=== PATIENT | male | born 1950 | race Caucasian/White ===

== ENCOUNTER → 2022-01-13 08:36 | Outpatient (CLI) | payer MEDICARE, SELFPAY ==
[2022-01-13 10:47] LABS: Hemoglobin A1C% w Est Avg Glu 6.3 % (4.0-6.0)
[2022-01-13 11:03] LABS: Alanine Aminotransferase 21 IU/L (<50); Albumin 3.9 g/dL (3.5-5.0); Albumin Globulin Ratio 1.3 (1.0-2.8); Alkaline Phosphatase 118 U/L (38-126); Aspartate Aminotransferase 23 IU/L (17-59); BUN Creatinine Ratio 13.4 (6-22); Bilirubin Total 0.5 mg/dL (0.2-1.3); Blood Urea Nitrogen 29 mg/dL (9-20); Calcium 9.6 mg/dL (8.4-10.2); Carbon Dioxide 24 mmol/L (22-32); Chloride 104 mmol/L (98-107); Cholesterol 110 mg/dL (140-199); Estimated Glomerular Filt Rate 32 mL/min (>60); Globulin 3.1 g/dL (1.7-4.1); Glucose 154 mg/dL (80-110); HDL Cholesterol 40 mg/dL (40-60); HEMOLYSIS < 15 (0-50); LDL Cholesterol Calculated 49 mg/dL (<100); Potassium 4.8 mmol/L (3.4-5.1); Sodium 140 mmol/L (137-145); Triglycerides 106 mg/dL (35-150)
[2022-01-13 11:29] LABS: TSH w/ Reflex to FT4 1.36 uIU/mL (0.47-4.68)
[2022-01-13 12:02] LABS: Folate 19.7 ng/mL (2.76-20.0); Vitamin B12 598 pg/mL (239-931)
[2022-01-14 05:13] LABS: PSA Free % 13.7 % (.); PSA, Total 2.7 ng/mL (0.0-4.0)
== END ==
PROVIDERS: PCP Family Medicine; Referring Provider Family Medicine; Visit Provider Family Medicine
DX: E11.22 Type 2 diabetes mellitus with diabetic chronic kidney disease (principal); E03.9 Hypothyroidism, unspecified; I10 Essential (primary) hypertension; Z12.5 Encounter for screening for malignant neoplasm of prostate; E56.9 Vitamin deficiency, unspecified; E78.2 Mixed hyperlipidemia
CPT/HCPCS: 36415; 80053; 80061; 82607; 82746; 83036; 84153; 84154; 84443; G0103

== ENCOUNTER → 2022-01-14 13:16 | Outpatient (CLI) | payer MEDICARE, SELFPAY ==
[2022-01-14 14:50] LABS: Creatinine Urine Random 96.8 mg/dL
[2022-01-14 15:50] LABS: Microalbumi Creatinin Ratio Ur 545.4 ug/mg CR (<30); Microalbumin Urine Random 52.8 mg/dL (0-1.6)
== END ==
PROVIDERS: PCP Family Medicine; Referring Provider Family Medicine; Visit Provider Family Medicine
DX: E11.22 Type 2 diabetes mellitus with diabetic chronic kidney disease (principal); I10 Essential (primary) hypertension
CPT/HCPCS: 82043; 82570

== ENCOUNTER → 2022-04-09 07:56 | Outpatient (CLI) | payer MEDICARE, SELFPAY ==
[2022-04-09 09:18] LABS: Hemoglobin A1C% w Est Avg Glu 6.5 % (4.0-6.0)
[2022-04-09 09:30] LABS: Alanine Aminotransferase 20 IU/L (<50); Albumin 3.9 g/dL (3.5-5.0); Alkaline Phosphatase 122 U/L (38-126); Aspartate Aminotransferase 18 IU/L (17-59); BUN Creatinine Ratio 14.8 (6-22); Bilirubin Total 0.4 mg/dL (0.2-1.3); Blood Urea Nitrogen 36 mg/dL (9-20); Calcium 9.4 mg/dL (8.4-10.2); Carbon Dioxide 20 mmol/L (22-32); Chloride 105 mmol/L (98-107); Cholesterol 120 mg/dL (140-199); Estimated Glomerular Filt Rate 28 mL/min (>60); Globulin 3.8 g/dL (1.7-4.1); Glucose 173 mg/dL (80-110); HDL Cholesterol 31 mg/dL (40-60); HEMOLYSIS < 15 (0-50); LDL Cholesterol Calculated 67 mg/dL (<100); Potassium 4.6 mmol/L (3.4-5.1); Sodium 140 mmol/L (137-145); Total Protein 7.7 g/dL (6.3-8.2); Triglycerides 108 mg/dL (35-150)
[2022-04-09 09:58] LABS: TSH w/ Reflex to FT4 2.24 uIU/mL (0.47-4.68)
[2022-04-11 12:09] LABS: Creatinine Urine Random 108.9 mg/dL
[2022-04-11 12:12] LABS: Microalbumi Creatinin Ratio Ur 112.9 ug/mg CR (<30); Microalbumin Urine Random 12.3 mg/dL (0-1.6)
== END ==
PROVIDERS: PCP Family Medicine; Referring Provider Family Medicine; Visit Provider Family Medicine
DX: E11.22 Type 2 diabetes mellitus with diabetic chronic kidney disease (principal); I12.9 Hypertensive chronic kidney disease with stage 1 through stage 4 chronic kidney disease, or unspecified chronic kidney disease; N18.32 Chronic kidney disease, stage 3b; E78.2 Mixed hyperlipidemia; E03.9 Hypothyroidism, unspecified
CPT/HCPCS: 36415; 80053; 80061; 82043; 82570; 83036; 84443

== ENCOUNTER → 2022-04-28 13:58 | Outpatient (CLI) | payer MEDICARE, SELFPAY ==
[2022-04-28 14:50] LABS: Hematocrit 37.8 % (41-53); Hemoglobin 12.3 g/dL (13.5-17.5)
[2022-04-28 15:26] LABS: BUN Creatinine Ratio 15.6 (6-22); Blood Urea Nitrogen 36 mg/dL (9-20); Calcium 9.6 mg/dL (8.4-10.2); Carbon Dioxide 25 mmol/L (22-32); Chloride 102 mmol/L (98-107); Estimated Glomerular Filt Rate 29 mL/min (>60); Glucose 181 mg/dL (80-110); HEMOLYSIS < 15 (0-50); Potassium 4.5 mmol/L (3.4-5.1); Sodium 139 mmol/L (137-145)
[2022-04-28 18:21] LABS: Creatinine Urine Random 206.3 mg/dL; Protein (Total) Urine Random 141 mg/dL (0-12); Protein Creatinine Ratio Urine 0.68 GRAM/24H
== END ==
PROVIDERS: PCP Family Medicine; Referring Provider Student in an Organized Health Care Education/Training Program; Visit Provider Student in an Organized Health Care Education/Training Program
DX: D64.9 Anemia, unspecified (principal); N05.9 Unspecified nephritic syndrome with unspecified morphologic changes; R80.9 Proteinuria, unspecified
CPT/HCPCS: 36415; 80048; 82570; 84156; 85014; 85018

== ENCOUNTER → 2022-05-30 12:59 | Outpatient (CLI) | payer MEDICARE, SELFPAY ==
--- NOTE | 2022-05-30 | DI.US.S_ITS ---
PROCEDURE: US RENAL COMPLETE INDICATIONS: Chronic kidney disease, stage 3b TECHNIQUE: Real-time scanning was performed of the kidneys and bladder, with image documentation. COMPARISON: None. FINDINGS: Kidneys: Kidneys are normal in size. Right kidney measures 10.7 cm long; left kidney measures 9.6 cm long. Right renal cortical thickness is 1.5 cm; left renal cortical thickness is 1.7 cm. Renal cortical echotexture is normal. No suspicious solid mass lesions. Possible 8 mm calculus versus prominent renal sinus fat at the interpolar region of the right kidney without significant posterior shadowing. Additional 10 mm echogenic focus is seen at the interpolar region of the left kidney without significant posterior shadowing. No hydronephrosis. Bladder: Pre-void bladder volume is 10.5 mL. Bladder is underdistended on prevoid images, which compromises evaluation. Voiding was not attempted. Miscellaneous: No free pelvic fluid. IMPRESSION: 1. Kidneys are normal in size without hydronephrosis. 2. Questionable bilateral nonobstructing renal calculi versus prominent foci of fat within the renal sinuses. Approved by: Saul Sanford M.D. on 05/30/2022 at 14:31
== END ==
PROVIDERS: PCP Family Medicine; Referring Provider Student in an Organized Health Care Education/Training Program; Visit Provider Student in an Organized Health Care Education/Training Program
DX: N18.32 Chronic kidney disease, stage 3b (principal)
CPT/HCPCS: 76770

== ENCOUNTER → 2022-06-06 09:09 | Outpatient (CLI) | payer MEDICARE, SELFPAY ==
[2022-06-06 10:08] LABS: Appearance Urine UA CLOUDY; Bilirubin Urine UA 1+ (NEGATIVE); Color Urine UA YELLOW; Glucose Urine UA NEGATIVE (Negative); Ketones Urine UA NEGATIVE (NEGATIVE); Leukocyte Esterase Urine UA 2+ (NEGATIVE); Nitrite Urine UA NEGATIVE (Negative); Occult Blood Urine UA TRACE-INTACT (Negative); Protein Urine UA 2+ (Negative); Specific Gravity Urine UA 1.025 (1.000-1.035); Urobilinogen Urine UA 0.2 E.U./dL (0.2)
[2022-06-06 10:14] LABS: Culture Indicated Urine Specimen Cultured
[2022-06-06 10:16] LABS: Squamous Epithelial Cell Urine 1-5 /HPF (0-5/HPF); WBC Urine 30-100/HPF (0-5/HPF)
[2022-06-06 10:18] LABS: Bacteria Urine Few (2-10); RBC Urine None Seen (0-5/HPF)
[2022-06-06 10:22] LABS: Ictotest Urine Negative (Negative)
[2022-06-06 10:32] LABS: Hematocrit 38.2 % (41-53); Hemoglobin 12.5 g/dL (13.5-17.5)
[2022-06-06 10:53] LABS: Creatinine Urine Random 263.8 mg/dL
[2022-06-06 10:59] LABS: Protein (Total) Urine Random 305 mg/dL (0-12); Protein Creatinine Ratio Urine 1.15 GRAM/24H
[2022-06-06 11:08] LABS: BUN Creatinine Ratio 11.4 (6-22); Blood Urea Nitrogen 26 mg/dL (9-20); Calcium 9.4 mg/dL (8.4-10.2); Carbon Dioxide 22 mmol/L (22-32); Chloride 101 mmol/L (98-107); Estimated Glomerular Filt Rate 30 mL/min (>60); Glucose 254 mg/dL (80-110); HEMOLYSIS < 15 (0-50); Phosphorous 3.2 mg/dL (2.3-3.7); Potassium 4.6 mmol/L (3.4-5.1); Sodium 137 mmol/L (137-145)
[2022-06-08 09:47] LABS: Parathyroid Hormone Int 45 pg/mL (15-65)
== END ==
PROVIDERS: PCP Family Medicine; Referring Provider Student in an Organized Health Care Education/Training Program; Visit Provider Student in an Organized Health Care Education/Training Program
DX: N05.9 Unspecified nephritic syndrome with unspecified morphologic changes (principal); D64.9 Anemia, unspecified; E83.30 Disorder of phosphorus metabolism, unspecified; N25.81 Secondary hyperparathyroidism of renal origin; N30.00 Acute cystitis without hematuria; R80.9 Proteinuria, unspecified
CPT/HCPCS: 36415; 80048; 81001; 82570; 83970; 84100; 84156; 85014; 85018; 87077; 87086; 87186

== ENCOUNTER → 2022-06-18 08:07 | Outpatient (CLI) | payer MEDICARE, SELFPAY ==
[2022-06-18 09:12] LABS: Hemoglobin A1C% w Est Avg Glu 6.3 % (4.0-6.0)
[2022-06-18 09:39] LABS: Alanine Aminotransferase 16 IU/L (<50); Albumin 3.6 g/dL (3.5-5.0); Albumin Globulin Ratio 1.1 (1.0-2.8); Alkaline Phosphatase 123 U/L (38-126); Aspartate Aminotransferase 16 IU/L (17-59); BUN Creatinine Ratio 13.4 (6-22); Bilirubin Total 0.6 mg/dL (0.2-1.3); Blood Urea Nitrogen 31 mg/dL (9-20); Calcium 9.6 mg/dL (8.4-10.2); Carbon Dioxide 20 mmol/L (22-32); Chloride 107 mmol/L (98-107); Cholesterol 112 mg/dL (140-199); Estimated Glomerular Filt Rate 29 mL/min (>60); Globulin 3.2 g/dL (1.7-4.1); Glucose 170 mg/dL (80-110); HDL Cholesterol 42 mg/dL (40-60); HEMOLYSIS < 15 (0-50); LDL Cholesterol Calculated 50 mg/dL (<100); Potassium 4.5 mmol/L (3.4-5.1); Sodium 139 mmol/L (137-145); Total Protein 6.8 g/dL (6.3-8.2); Triglycerides 100 mg/dL (35-150)
[2022-06-18 11:09] LABS: Creatinine Urine Random 249.2 mg/dL
[2022-06-18 12:02] LABS: Microalbumi Creatinin Ratio Ur 200.6 ug/mg CR (<30)
[2022-06-18 15:04] LABS: TSH w/ Reflex to FT4 3.88 uIU/mL (0.47-4.68)
== END ==
PROVIDERS: PCP Family Medicine; Referring Provider Family Medicine; Visit Provider Family Medicine
DX: E11.22 Type 2 diabetes mellitus with diabetic chronic kidney disease (principal); I12.9 Hypertensive chronic kidney disease with stage 1 through stage 4 chronic kidney disease, or unspecified chronic kidney disease; N18.32 Chronic kidney disease, stage 3b; E78.2 Mixed hyperlipidemia; E03.9 Hypothyroidism, unspecified
CPT/HCPCS: 36415; 80053; 80061; 82043; 82570; 83036; 84443

== ENCOUNTER → 2022-10-21 07:23 | Outpatient (CLI) | payer MEDICARE, SELFPAY ==
[2022-10-21 08:10] LABS: Hematocrit 38.6 % (41-53); Hemoglobin 13.1 g/dL (13.5-17.5)
[2022-10-21 08:31] LABS: BUN Creatinine Ratio 16.2 (6-22); Blood Urea Nitrogen 37 mg/dL (9-20); Calcium 9.1 mg/dL (8.4-10.2); Carbon Dioxide 22 mmol/L (22-32); Chloride 108 mmol/L (98-107); Estimated Glomerular Filt Rate 30 mL/min (>60); Glucose 150 mg/dL (80-110); HEMOLYSIS < 15 (0-50); Potassium 4.5 mmol/L (3.4-5.1); Sodium 137 mmol/L (137-145)
[2022-10-21 08:44] LABS: Protein (Total) Urine Random 26 mg/dL (0-12); Protein Creatinine Ratio Urine 0.33 GRAM/24H
[2022-10-22 09:30] LABS: Parathyroid Hormone Int 52 pg/mL (15-65)
== END ==
PROVIDERS: PCP Nurse Practitioner Family; Referring Provider Student in an Organized Health Care Education/Training Program; Visit Provider Student in an Organized Health Care Education/Training Program
DX: N05.9 Unspecified nephritic syndrome with unspecified morphologic changes (principal); D64.9 Anemia, unspecified; N25.81 Secondary hyperparathyroidism of renal origin; R80.9 Proteinuria, unspecified
CPT/HCPCS: 36415; 80048; 82570; 83970; 84156; 85014; 85018

== ENCOUNTER → 2023-01-04 07:49 | Outpatient (CLI) | payer MEDICARE, SELFPAY ==
[2023-01-04 08:29] LABS: Add Manual Diff / Slide Review NO; Basophils Absolute Auto 100 /uL (0-100); Basophils Percent Auto 0.9 % (0-2); Eosinophils Absolute Auto 200 /uL (0-450); Eosinophils Percent Auto 3.3 % (2-4); Hematocrit 39.7 % (41-53); Hemoglobin 13.4 g/dL (13.5-17.5); Lymphocytes Absolute Auto 1800 /uL (1100-4500); Lymphocytes Percent Auto 28.8 % (25-40); Mean Corpuscular HGB Conc 33.8 % (30-36); Mean Corpuscular Hemoglobin 31.5 PG (26-34); Mean Corpuscular Volume 93.1 fL (80-100); Monocytes Absolute Auto 700 /uL (0-900); Monocytes Percent Auto 11.3 % (3-14); Neutrophils Absolute Auto 3500 /uL (1500-7000); Neutrophils Percent Auto 55.7 % (50-75); Platelet Count 249 X10^3/uL (150-400); Red Blood Cell Count 4.26 X10^6/uL (4.5-5.9); Red Cell Distribution Width 14.5 % (11.6-14.8); White Blood Cell Count 6.3 X10^3/uL (4.5-11.0)
[2023-01-04 08:48] LABS: Alanine Aminotransferase 18 IU/L (<50); Albumin 3.9 g/dL (3.5-5.0); Albumin Globulin Ratio 1.3 (1.0-2.8); Alkaline Phosphatase 140 U/L (38-126); Aspartate Aminotransferase 18 IU/L (17-59); Bilirubin Total 0.4 mg/dL (0.2-1.3); Blood Urea Nitrogen 30 mg/dL (9-20); Calcium 9.6 mg/dL (8.4-10.2); Carbon Dioxide 19 mmol/L (22-32); Chloride 108 mmol/L (98-107); Cholesterol 124 mg/dL (140-199); Estimated Glomerular Filt Rate 29 mL/min (>60); Globulin 3.1 g/dL (1.7-4.1); Glucose 122 mg/dL (80-110); HDL Cholesterol 41 mg/dL (40-60); HEMOLYSIS < 15 (0-50); LDL Cholesterol Calculated 56 mg/dL (<100); Potassium 4.7 mmol/L (3.4-5.1); Sodium 140 mmol/L (137-145); Triglycerides 133 mg/dL (35-150)
[2023-01-04 09:14] LABS: TSH w/ Reflex to FT4 5.28 uIU/mL (0.47-4.68)
[2023-01-04 09:46] LABS: Hemoglobin A1C% w Est Avg Glu 5.4 % (4.0-6.0)
[2023-01-04 10:16] LABS: Free T4, Direct Thyroxine 1.33 ng/dL (0.78-2.19)
== END ==
PROVIDERS: PCP Nurse Practitioner Family; Referring Provider Nurse Practitioner Family; Visit Provider Nurse Practitioner Family
DX: E03.9 Hypothyroidism, unspecified (principal); E11.9 Type 2 diabetes mellitus without complications; E78.5 Hyperlipidemia, unspecified; N18.4 Chronic kidney disease, stage 4 (severe); I10 Essential (primary) hypertension
CPT/HCPCS: 36415; 80053; 80061; 83036; 84439; 84443; 85025

== ENCOUNTER → 2023-02-16 11:56 | Outpatient (CLI) | payer MEDICARE, SELFPAY ==
[2023-02-16 13:43] LABS: Hematocrit 41.2 % (41-53); Hemoglobin 13.8 g/dL (13.5-17.5)
[2023-02-16 14:01] LABS: BUN Creatinine Ratio 14.8 (6-22); Blood Urea Nitrogen 31 mg/dL (9-20); Calcium 9.5 mg/dL (8.4-10.2); Carbon Dioxide 19 mmol/L (22-32); Chloride 106 mmol/L (98-107); Estimated Glomerular Filt Rate 33 mL/min (>60); Glucose 126 mg/dL (80-110); HEMOLYSIS < 15 (0-50); Potassium 4.6 mmol/L (3.4-5.1); Sodium 137 mmol/L (137-145)
[2023-02-16 18:11] LABS: Creatinine Urine Random 65.9 mg/dL; Protein (Total) Urine Random 49 mg/dL (0-12); Protein Creatinine Ratio Urine 0.74 GRAM/24H
[2023-02-19 10:07] LABS: Parathyroid Hormone Int 50 pg/mL (15-65)
== END ==
PROVIDERS: PCP Nurse Practitioner Family; Referring Provider Student in an Organized Health Care Education/Training Program; Visit Provider Student in an Organized Health Care Education/Training Program
DX: N05.9 Unspecified nephritic syndrome with unspecified morphologic changes (principal); D64.9 Anemia, unspecified; N25.81 Secondary hyperparathyroidism of renal origin; R80.9 Proteinuria, unspecified
CPT/HCPCS: 36415; 80048; 82570; 83970; 84156; 85014; 85018

== ENCOUNTER → 2023-03-31 10:49 | Outpatient (CLI) | payer MEDICARE, SELFPAY ==
[2023-03-31 12:07] LABS: BUN Creatinine Ratio 13.6 (6-22); Blood Urea Nitrogen 30 mg/dL (9-20); Calcium 9.8 mg/dL (8.4-10.2); Carbon Dioxide 24 mmol/L (22-32); Chloride 107 mmol/L (98-107); Estimated Glomerular Filt Rate 31 mL/min (>60); Glucose 98 mg/dL (80-110); HEMOLYSIS 25 (0-50); Potassium 4.6 mmol/L (3.4-5.1); Sodium 137 mmol/L (137-145)
[2023-03-31 14:22] LABS: Creatinine Urine Random 76.9 mg/dL; Protein (Total) Urine Random 39 mg/dL (0-12)
== END ==
PROVIDERS: PCP Nurse Practitioner Family; Referring Provider Student in an Organized Health Care Education/Training Program; Visit Provider Student in an Organized Health Care Education/Training Program
DX: N05.9 Unspecified nephritic syndrome with unspecified morphologic changes (principal); R80.9 Proteinuria, unspecified
CPT/HCPCS: 36415; 80048; 82570; 84156

== ENCOUNTER → 2023-07-10 09:19 | Outpatient (CLI) | payer MEDICARE, SELFPAY ==
[2023-07-10 10:40] LABS: Hematocrit 40.6 % (41-53); Hemoglobin 13.8 g/dL (13.5-17.5)
[2023-07-10 10:49] LABS: BUN Creatinine Ratio 14.4 (6-22); Blood Urea Nitrogen 41 mg/dL (9-20); Calcium 9.3 mg/dL (8.4-10.2); Carbon Dioxide 20 mmol/L (22-32); Chloride 111 mmol/L (98-107); Estimated Glomerular Filt Rate 23 mL/min (>60); Glucose 108 mg/dL (80-110); HEMOLYSIS < 15 (0-50); Potassium 4.6 mmol/L (3.4-5.1); Sodium 139 mmol/L (137-145)
[2023-07-10 11:55] LABS: Creatinine Urine Random 77.4 mg/dL; Protein (Total) Urine Random 21 mg/dL (0-12); Protein Creatinine Ratio Urine 0.27 GRAM/24H
[2023-07-12 09:29] LABS: Parathyroid Hormone Int 50 pg/mL (15-65)
== END ==
PROVIDERS: PCP Nurse Practitioner Family; Referring Provider Student in an Organized Health Care Education/Training Program; Visit Provider Student in an Organized Health Care Education/Training Program
DX: N05.9 Unspecified nephritic syndrome with unspecified morphologic changes (principal); D70.9 Neutropenia, unspecified; D63.1 Anemia in chronic kidney disease; R80.9 Proteinuria, unspecified; N25.81 Secondary hyperparathyroidism of renal origin
CPT/HCPCS: 36415; 80048; 82570; 83970; 84156; 85014; 85018

== ENCOUNTER → 2023-08-03 10:18 | Outpatient (CLI) | payer MEDICARE, SELFPAY ==
[2023-08-03 11:24] LABS: BUN Creatinine Ratio 12.8 (6-22); Blood Urea Nitrogen 31 mg/dL (9-20); Calcium 9.3 mg/dL (8.4-10.2); Carbon Dioxide 20 mmol/L (22-32); Chloride 110 mmol/L (98-107); Estimated Glomerular Filt Rate 28 mL/min (>60); Glucose 108 mg/dL (80-110); HEMOLYSIS < 15 (0-50); Sodium 138 mmol/L (137-145)
[2023-08-03 12:57] LABS: Creatinine Urine Random 68.3 mg/dL; Protein (Total) Urine Random 55 mg/dL (0-12)
== END ==
PROVIDERS: PCP Nurse Practitioner Family; Referring Provider Student in an Organized Health Care Education/Training Program; Visit Provider Student in an Organized Health Care Education/Training Program
DX: N05.9 Unspecified nephritic syndrome with unspecified morphologic changes (principal); R80.9 Proteinuria, unspecified
CPT/HCPCS: 36415; 80048; 82570; 84156

== ENCOUNTER → 2023-12-15 07:34 | Outpatient (CLI) | payer MEDICARE, SELFPAY ==
[2023-12-15 08:37] LABS: Creatinine Urine Random 80.19 mg/dL
[2023-12-15 08:42] LABS: Microalbumin Urine Random 16.6 mg/dL (0-1.6)
[2023-12-15 09:20] LABS: TSH w/ Reflex to FT4 1.36 uIU/mL (0.47-4.68)
[2023-12-15 10:01] LABS: Cholesterol 110 mg/dL (140-199); HDL Cholesterol 31 mg/dL (40-60); LDL Cholesterol Calculated 43 mg/dL (<100); Triglycerides 182 mg/dL (35-150)
== END ==
PROVIDERS: PCP Nurse Practitioner Family; Referring Provider Nurse Practitioner Family; Visit Provider Nurse Practitioner Family
DX: E11.9 Type 2 diabetes mellitus without complications (principal); R74.8 Abnormal levels of other serum enzymes; E03.9 Hypothyroidism, unspecified; E78.5 Hyperlipidemia, unspecified
CPT/HCPCS: 36415; 80061; 82043; 82570; 83036; 84443

== ENCOUNTER 2024-01-26 10:29 | Emergency (ER) | payer MEDICARE, SELFPAY ==
[2024-01-26 11:03] VITALS: BP 152/89; PULSE 80; RESP 16; TEMP 36.2; O2SAT 99; BMI 31.6
--- NOTE | 2024-01-26 13:40 | ED_ITS ---
HPI - Eye Problem <Sandra Farnsworth PA-C - Last Filed: 01/26/24 15:53> General Chief complaint: Eye Problems Stated complaint: r eye vision loss, sent by [facility] Time Seen by Provider: 01/26/24 13:40 Source: patient Mode of arrival: Family Vehicle History of Present Illness HPI Narrative: Patient is a very pleasant 73-year-old male presents to the emergency department today with complaints of right eye foggy was, an sharp pain when he opens his eyes that initially is present and then dissipates. The patient states that he was sitting watching TV this was a sudden onset, there was no precipitating episode and he had had no other symptoms. Symptoms have not dissipated, he goggled stuff online and thought perhaps he was having a stroke and presented to the emergency room department today. He has no other further complaints. No recent trauma, injury or fall. No recent cough, cold or URI like symptoms. He would cataract surgery greater than 10 years ago bilaterally. Patient wears readers, he does not have any spots, he does not have a black curtain, has no loss of peripheral vision, currently does not have any discomfort or pain, currently does not have any discharge from the eyes, currently does not have any blurred vision, double vision. Currently is not unsteady, weak, dizzy. He has no other physical complaints. Related Data Home Medications Medication Instructions Recorded Confirmed amlodipine 10 mg tablet 10 mg PO DAILY 12/05/23 12/05/23 bupropion HCl 300 mg 24 hr tablet, 300 mg PO DAILY 12/05/23 12/05/23 extended release carvedilol 3.125 mg tablet 3.125 mg PO 12/05/23 12/05/23 clobetasol 0.05 % topical ointment 1 applic topical BID 12/05/23 12/05/23 levothyroxine 200 mcg tablet 200 mcg PO DAILY 12/05/23 12/05/23 levothyroxine 25 mcg tablet 25 mcg PO DAILY 12/05/23 12/05/23 losartan 50 mg tablet 75 mg PO DAILY 12/05/23 12/05/23 omega-3 acid ethyl esters 1 gram 2 cap PO BID 12/05/23 12/05/23 capsule rosuvastatin 10 mg tablet 10 mg PO ONCE PM 12/05/23 12/05/23 sitagliptin phosphate 50 mg tablet 50 mg PO DAILY 12/05/23 12/05/23 (Januvia) Allergies Allergy/AdvReac Type Severity Reaction Status Date / Time No Known Drug Allergies Allergy Verified 12/05/23 11:44 Review of Systems <Sandra Farnsworth PA-C - Last Filed: 01/26/24 15:53> Review of Systems Narrative: Negative except as above Eyes Comments: Fogginess in the right eye Patient History <Sandra Farnsworth PA-C - Last Filed: 01/26/24 15:53> Social History Smoking Status: Current every day smoker Smoking Status: Current every day smoker tobacco type: cigarettes alcohol intake frequency: holidays/special occasions only Substance Use Type: marijuana Exam <NADEEN aT Last Filed: 01/26/24 15:53> Initial Vital Signs Initial Vital Signs: Vital Signs Temperature 97.2 F L 01/26/24 11:03 Pulse Rate 80 01/26/24 11:03 Respiratory Rate 16 01/26/24 11:03 Blood Pressure 152/89 H 01/26/24 11:03 Pulse Oximetry 99 01/26/24 11:03 Oxygen Delivery Method Room Air 01/26/24 11:03 Reviewed Const General: cooperative, healthy appearing, comfortable, well developed, well groomed, No acute distress and No in distress Eyes General: Yes appearance normal, both eyes and all related structures Eyelids: eyelids normal Conjunctivae: other (Irritated, mildly a red) Pupils: PERRL, normal by confrontation, not dilated, not fixed, regular and pupil size (3-4 and reactive) bilaterally Direct ophthalmoscopy: normal light reflex and other (Bruce-Pen pressures 2-3 I checked his multiple times) Other: Hints exam is negative. No nystagmus with exam Neuro General: patient alert, patient awake, patient oriented x3, oriented, gait normal, tone normal and moves all extremities Extrem Other: Range of motion, strength, pulses, cap refill are preserved in the upper and lower extremities Psych Other: Appearance, mental status, speech, movement, mood, affect, attitude, thought process, thought content, judgment all within normal limits <Barb De La Cruz DO - Last Filed: 01/27/24 08:40> Initial Vital Signs Initial Vital Signs: Vital Signs Temperature 97.2 F L 01/26/24 11:03 Pulse Rate 80 01/26/24 11:03 Respiratory Rate 16 01/26/24 11:03 Blood Pressure 152/89 H 01/26/24 11:03 Pulse Oximetry 99 01/26/24 11:03 Oxygen Delivery Method Room Air 01/26/24 11:03 Scores <Sandra Farnsworth PA-C - Last Filed: 01/26/24 15:53> GCS Citation: 15 NIH Stroke Scale Citation:: 0 Course <Sandra Farnsworth PA-C - Last Filed: 01/26/24 15:53> Orders Ordered: Discontinued Medications Fluorescein Sodium (Fluorescein 1 Mg Strip) 1 mg EYE-RIGHT NOW ONE Stop: 01/26/24 13:50 Last Admin: 01/26/24 13:55 Dose: 1 mg Documented By: DANIEL Proparacaine HCl (Proparacaine 0.5% Ophth Raquel) 1 drops EYE-RIGHT NOW ONE Stop: 01/26/24 13:50 Last Admin: 01/26/24 13:54 Dose: 1 drop Documented By: SB Vital Signs Vital signs: Vital Signs - 8 hr 01/26/24 11:03 Temperature 97.2 F L Pulse Rate 80 Respiratory Rate 16 Blood Pressure 152/89 H Pulse Oximetry 99 Oxygen Delivery Method Room Air Reviewed <Barb De La Cruz DO - Last Filed: 01/27/24 08:40> Orders Ordered: Discontinued Medications Fluorescein Sodium (Fluorescein 1 Mg Strip) 1 mg EYE-RIGHT NOW ONE Stop: 01/26/24 13:50 Last Admin: 01/26/24 13:55 Dose: 1 mg Documented By: SB Proparacaine HCl (Proparacaine 0.5% Ophth Raquel) 1 drops EYE-RIGHT NOW ONE Stop: 01/26/24 13:50 Last Admin: 01/26/24 13:54 Dose: 1 drop Documented By: SB Vital Signs Vital signs: Vital Signs - 8 hr 01/26/24 11:03 Temperature 97.2 F L Pulse Rate 80 Respiratory Rate 16 Blood Pressure 152/89 H Pulse Oximetry 99 Oxygen Delivery Method Room Air MDM - Eye Problem <NADEEN Ta Last Filed: 01/26/24 15:53> MDM Narrative Medical decision making narrative: Pleasant 73-year-old male sudden onset of right eye fogginess with a history of bilateral cataract surgery 10 years ago. No other physical complaints. [place] coma scale 15, NIH score 0. Eye exam negative, pupils equal and reactive, no nystagmus. Hints exam negative Eye pressures were checked I checked this multiple times they were low 2-3 Conjunctiva mildly irritated and injected The rest of his exam was negative History of smoking, history of hypertension, history of diabetes I called the eye Clinic, Dr. Dejesus is currently on-call They were able to see the patient at 2:45 p.m. today I made arrangements to discharge the patient have the patient seen in the eye clinic by the program clerk/catholic priest. Patient discharged to the catholic priest for a full eye exam. Low suspicion no suspicion for stroke, aneurysm, intracranial pathology. Differential diagnosis; MDD, possible retinal detachment, issues associated with previous cataract surgery, IEye infection, worsening Eye pathology. Discharge Plan Departure Patient Disposition: Home Clinical Impression: Acute right eye pain Activity Restrictions/Additional Instructions: I made an appointment for you with the catholic priest at 2:45 p.m. Please follow up with your appointment Prescriptions: No Action levothyroxine 25 mcg tablet 25 mcg PO DAILY levothyroxine 200 mcg tablet 200 mcg PO DAILY bupropion HCl 300 mg tablet extended release 24 hr 300 mg PO DAILY amlodipine 10 mg tablet 10 mg PO DAILY carvedilol 3.125 mg tablet 3.125 mg PO losartan 50 mg tablet 75 mg PO DAILY rosuvastatin 10 mg tablet 10 mg PO ONCE PM Januvia 50 mg tablet 50 mg PO DAILY omega-3 acid ethyl esters 1 gram capsule 2 cap PO BID clobetasol 0.05 % ointment 1 applic topical BID Referrals: Gely Sanders ARNP, RN [Primary Care Provider] - Stand Alone Forms: Patient Portal/API ED Sign-out <Barb De La Cruz DO - Last Filed: 01/27/24 08:40> Cosign ED Attending Cosignature Attestation: I was available for consultation.
[2024-01-26] MEDS: PROPARACAINE 0.5% OPHTH SOL 1 DROPS EYE-RIGHT (13:54)
[2024-01-26] MEDS: FLUORESCEIN 1 MG STRIP EYE-RIGHT (13:55)
== END 2024-01-26 14:20 | disposition home or self-care (01) ==
PROVIDERS: Emergency Provider Physician Assistant; PCP Nurse Practitioner Family
DX: H53.8 Other visual disturbances (principal); H57.11 Ocular pain, right eye; Z98.42 Cataract extraction status, left eye; Z98.41 Cataract extraction status, right eye
CPT/HCPCS: 99282

== ENCOUNTER → 2024-03-28 07:14 | Outpatient (CLI) | payer MEDICARE, SELFPAY ==
[2024-03-28 08:01] LABS: BUN Creatinine Ratio 16.1 (6-22); Blood Urea Nitrogen 37 mg/dL (9-20); Calcium 9.3 mg/dL (8.4-10.2); Carbon Dioxide 19 mmol/L (22-32); Chloride 113 mmol/L (98-107); Estimated Glomerular Filt Rate 29 mL/min (>60); Glucose 133 mg/dL (80-110); HEMOLYSIS < 15 (0-50); Potassium 4.8 mmol/L (3.4-5.1); Sodium 140 mmol/L (137-145)
[2024-03-28 08:23] LABS: Creatinine Urine Random 80.38 mg/dL; Protein (Total) Urine Random 31 mg/dL (0-12); Protein Creatinine Ratio Urine 0.38 GRAM/24H
== END ==
LOC: LAB 07:16
PROVIDERS: PCP Family Medicine; Referring Provider Student in an Organized Health Care Education/Training Program; Visit Provider Student in an Organized Health Care Education/Training Program
DX: N05.9 Unspecified nephritic syndrome with unspecified morphologic changes (principal); D70.9 Neutropenia, unspecified; D63.1 Anemia in chronic kidney disease; N25.81 Secondary hyperparathyroidism of renal origin; R80.9 Proteinuria, unspecified
CPT/HCPCS: 36415; 80048; 82310; 82570; 83051; 83970; 84156

== ENCOUNTER → 2024-06-03 15:02 | Outpatient (CLI) | payer MEDICARE, SELFPAY ==
[2024-06-03 15:57] LABS: Influenza A - CEPHEID Flu A NEGATIVE (NEGATIVE); Influenza B - CEPHEID Flu B NEGATIVE (NEGATIVE); Respiratory Syncytial Virus Negative (Negative)
[2024-06-03 16:18] LABS: COVID-19 CEPHEID 4-PLEX PCR POSITIVE (Negative)
== END ==
PROVIDERS: PCP Family Medicine; Visit Provider Physician Assistant
DX: R05.1 Acute cough (principal)
CPT/HCPCS: 0241U

== ENCOUNTER → 2024-06-22 08:39 | Outpatient (CLI) | payer MEDICARE, SELFPAY ==
[2024-06-22 10:03] LABS: Creatinine Urine Random 94.72 mg/dL; Protein (Total) Urine Random 64 mg/dL (0-12); Protein Creatinine Ratio Urine 0.67 GRAM/24H
[2024-06-22 10:10] LABS: Hematocrit 42.7 % (41-53); Hemoglobin 14.3 g/dL (13.5-17.5)
[2024-06-22 10:21] LABS: BUN Creatinine Ratio 12.3 (6-22); Blood Urea Nitrogen 27 mg/dL (9-20); Calcium 9.2 mg/dL (8.4-10.2); Carbon Dioxide 19 mmol/L (22-32); Chloride 110 mmol/L (98-107); Estimated Glomerular Filt Rate 31 mL/min (>60); Glucose 165 mg/dL (80-110); HEMOLYSIS < 15 (0-50); Potassium 4.6 mmol/L (3.4-5.1); Sodium 139 mmol/L (137-145)
[2024-06-23 11:08] LABS: Parathyroid Hormone Int 64 pg/mL (15-65)
== END ==
PROVIDERS: PCP Family Medicine; Referring Provider Student in an Organized Health Care Education/Training Program; Visit Provider Student in an Organized Health Care Education/Training Program
DX: N05.9 Unspecified nephritic syndrome with unspecified morphologic changes (principal); D70.9 Neutropenia, unspecified; D63.1 Anemia in chronic kidney disease; N25.81 Secondary hyperparathyroidism of renal origin; R80.9 Proteinuria, unspecified
CPT/HCPCS: 36415; 80048; 82570; 83970; 84156; 85014; 85018

== ENCOUNTER → 2024-08-15 07:03 | Outpatient (CLI) | payer MEDICARE, SELFPAY ==
[2024-08-15 08:44] LABS: Hemoglobin A1C% w Est Avg Glu 6.1 % (4.0-6.0)
[2024-08-15 08:54] LABS: Thyroid Stimulating Hormone 2.41 uIU/mL (0.47-4.68)
== END ==
PROVIDERS: PCP Family Medicine; Referring Provider Family Medicine; Visit Provider Family Medicine
DX: E11.9 Type 2 diabetes mellitus without complications (principal); E03.9 Hypothyroidism, unspecified; N18.30 Chronic kidney disease, stage 3 unspecified
CPT/HCPCS: 36415; 83036; 84443

== ENCOUNTER → 2024-10-18 07:58 | Outpatient (CLI) | payer MEDICARE, SELFPAY ==
[2024-10-18 08:59] LABS: Hematocrit 41.1 % (41-53); Hemoglobin 13.9 g/dL (13.5-17.5)
[2024-10-18 09:22] LABS: Protein (Total) Urine Random 60 mg/dL (0-12); Protein Creatinine Ratio Urine 0.53 GRAM/24H
[2024-10-18 09:33] LABS: Blood Urea Nitrogen 29 mg/dL (9-20); Calcium 8.9 mg/dL (8.4-10.2); Carbon Dioxide 20 mmol/L (22-32); Chloride 106 mmol/L (98-107); Estimated Glomerular Filt Rate 29 mL/min (>60); Glucose 238 mg/dL (70-99); HEMOLYSIS < 15 (0-50); Potassium 4.8 mmol/L (3.4-5.1); Sodium 137 mmol/L (137-145)
== END ==
PROVIDERS: PCP Family Medicine; Referring Provider Student in an Organized Health Care Education/Training Program; Visit Provider Student in an Organized Health Care Education/Training Program
DX: N05.9 Unspecified nephritic syndrome with unspecified morphologic changes (principal); D70.9 Neutropenia, unspecified; D63.1 Anemia in chronic kidney disease; N25.81 Secondary hyperparathyroidism of renal origin; R80.9 Proteinuria, unspecified
CPT/HCPCS: 36415; 80048; 82570; 83970; 84156; 85014; 85018